=== PATIENT | female | born 1950 | race Caucasian/White ===

== ENCOUNTER 2020-07-04 19:57 | Observation (INO) | payer MEDICARE, OTHER ==
[~2020-07-04] VITALS: Ht 165.1 cm; Wt 119.3 kg
[~2020-07-04 19:57] MED LIST: BACTRIM 400-801 EACH PO; FLAGYL500 MG PO; OMNICEF 300 MG300 MG PO
[2020-07-05 01:11] LABS: HEMOGLOBIN 13.6 gm/dl (12.3-15.3); RED BLOOD COUNT 4.44 M/UL (4.00-5.10)
[2020-07-05 01:30] LABS: BUN/CREATININE RATIO 17 (0-10)
[2020-07-05 07:15] LABS: HEMOGLOBIN 12.4 gm/dl (12.3-15.3); RED BLOOD COUNT 4.06 M/UL (4.00-5.10); WHITE BLOOD COUNT 9.9 K/UL (4.5-11.0)
[2020-07-05 07:41] LABS: BUN/CREATININE RATIO 14 (0-10)
[2020-07-05] MEDS ORDERED: PAMELOR 25 MG C25 MG PO (13:28)
[2020-07-05] MEDS ORDERED: GABAPENTIN800 MG PO (13:31)
[2020-07-05] MEDS ORDERED: AMLODIPINE BESYL5 MG PO (13:32)
[2020-07-05] MEDS ORDERED: TRAMADOL HCL50 MG PO (13:32)
[2020-07-05] MEDS ORDERED: BUDESONIDE-FO10.2 G1 INH (13:33)
[2020-07-05] MEDS ORDERED: CELEXA10 MG PO (13:34)
[2020-07-05] MEDS ORDERED: LASIX TAB 20 MG20 MG PO (13:35)
[2020-07-05] MEDS ORDERED: GLUCOPHAGE1000 MG PO (13:35)
[2020-07-05] MEDS ORDERED: TENORMIN25 MG PO (13:36)
[2020-07-05] MEDS ORDERED: METOCLOPRAMIDE10 MG PO (13:36)
[2020-07-05] MEDS ORDERED: VITAMIN D21250 MCG PO (13:37)
[2020-07-05] MEDS ORDERED: SPIRIVA RESPIMAT4 GM INH (13:38)
[2020-07-05] MEDS ORDERED: PREVACID30 MG PO (13:46)
[2020-07-07] MEDS ORDERED: AUGMENTIN 500-500 MG PO (12:53)
[2020-07-07] MEDS ORDERED: MIRALAX17 GM PO (12:53)
== END 2020-07-07 15:43 | disposition home or self-care (01) ==
LOC: ER1 19:57 → CDU 07-05 03:44 → MED SURG 4 07-05 06:35
PROVIDERS: Emergency Medicine; Internal Medicine; ADMIT Internal Medicine
DX: K57.32 Diverticulitis of large intestine without perforation or abscess without bleeding (principal); K59.00 Constipation, unspecified; E66.01 Morbid (severe) obesity due to excess calories; E11.9 Type 2 diabetes mellitus without complications; J44.9 Chronic obstructive pulmonary disease, unspecified; E78.5 Hyperlipidemia, unspecified; I10 Essential (primary) hypertension; F17.220 Nicotine dependence, chewing tobacco, uncomplicated; Z99.81 Dependence on supplemental oxygen; Z20.822 Contact with and (suspected) exposure to COVID-19; Z83.3 Family history of diabetes mellitus; Z88.8 Allergy status to other drugs, medicaments and biological substances; Z68.41 Body mass index [BMI] 40.0-44.9, adult; Z79.84 Long term (current) use of oral hypoglycemic drugs; Z79.899 Other long term (current) drug therapy
CPT/HCPCS: 71045; 74019; 80048; 80053; 81001; 82962; 83605; 83690; 83735; 84484; 85025; 85610; 85730; 87040; 93005; 94664; 94760; 96365; 96367; 96372; 96375; 96376; 99285; G0378; J1650; J2270; J2405; J2543; Q9967; U0002

== ENCOUNTER 2021-04-18 17:38 | Observation (INO) | payer MEDICARE ==
[~2021-04-18] VITALS: Ht 165.1 cm; Wt 119.3 kg
[~2021-04-18 17:38] MED LIST changes: +AMLODIPINE BESYL5 MG PO; +AUGMENTIN 500-500 MG PO; +BUDESONIDE-FO10.2 G1 INH; +CELEXA10 MG PO; +GABAPENTIN800 MG PO; +GLUCOPHAGE 500500 MG PO; +LASIX TAB 20 MG20 MG PO; +METOCLOPRAMIDE10 MG PO; +MIRALAX17 GM PO; +PAMELOR 25 MG C25 MG PO; +PREVACID30 MG PO; +SPIRIVA RESPIMAT4 GM INH; +TENORMIN25 MG PO; +TRAMADOL HCL50 MG PO; +VITAMIN D21250 MCG PO
[2021-04-18 18:18] LABS: HEMOGLOBIN 12.7 gm/dl (12.3-15.3); RED BLOOD COUNT 4.07 M/UL (4.00-5.10); WHITE BLOOD COUNT 10.6 K/UL (4.5-11.0)
[2021-04-18 18:49] LABS: BUN/CREATININE RATIO 16 (0-10)
[2021-04-18] MEDS ORDERED: REGLAN10 MG PO (22:52)
[2021-04-19 03:17] LABS: HEMOGLOBIN 12.1 gm/dl (12.3-15.3); RED BLOOD COUNT 4.09 M/UL (4.00-5.10)
[2021-04-19 03:51] LABS: BUN/CREATININE RATIO 16 (0-10)
[2021-04-20] MEDS ORDERED: ATORVASTATIN CA20 MG PO (15:39)
== END 2021-04-20 17:24 | disposition home or self-care (01) ==
LOC: ER1 17:38 → CDU 21:01 → M/S 21:01
PROVIDERS: Physician Assistant Medical; ADMIT Internal Medicine
DX: R07.89 Other chest pain (principal); R00.2 Palpitations; I25.10 Atherosclerotic heart disease of native coronary artery without angina pectoris; I11.9 Hypertensive heart disease without heart failure; J44.9 Chronic obstructive pulmonary disease, unspecified; E11.40 Type 2 diabetes mellitus with diabetic neuropathy, unspecified; E78.5 Hyperlipidemia, unspecified; K21.9 Gastro-esophageal reflux disease without esophagitis; E78.00 Pure hypercholesterolemia, unspecified; J96.11 Chronic respiratory failure with hypoxia; F41.9 Anxiety disorder, unspecified; F32.A Depression, unspecified; G89.29 Other chronic pain; E11.43 Type 2 diabetes mellitus with diabetic autonomic (poly)neuropathy; K31.84 Gastroparesis; F17.220 Nicotine dependence, chewing tobacco, uncomplicated; E66.2 Morbid (severe) obesity with alveolar hypoventilation; Z68.41 Body mass index [BMI] 40.0-44.9, adult; Z20.822 Contact with and (suspected) exposure to COVID-19; Z99.81 Dependence on supplemental oxygen; Z95.5 Presence of coronary angioplasty implant and graft; Z90.49 Acquired absence of other specified parts of digestive tract; Z90.710 Acquired absence of both cervix and uterus; Z96.641 Presence of right artificial hip joint; Z79.899 Other long term (current) drug therapy; Z79.84 Long term (current) use of oral hypoglycemic drugs; Z88.8 Allergy status to other drugs, medicaments and biological substances; Z79.82 Long term (current) use of aspirin
CPT/HCPCS: ECHO; 36415; 71045; 78452; 80053; 80061; 81001; 82550; 82553; 82962; 83036; 83735; 83874; 83880; 84100; 84439; 84443; 84484; 84550; 85025; 86140; 93005; 93017; 93270; 93306; 94640; 94664; 94760; 96372; 99285; A9502; G0378; J1650; J2785; U0002